=== PATIENT | male | born 1945 | race African-American/Black ===

== ENCOUNTER 2017-08-04 05:39 | Inpatient (IN) | payer OTHER ==
[~2017-08-04] VITALS: Ht 182.9 cm; Wt 127.4 kg
[2017-08-04] MEDS ORDERED: aspirin 81mg tab.chew PO ONE ×2 (05:50→07:15)
[2017-08-04] MEDS ORDERED: normal saline 1000ML IV soln IVB ONE (06:15)
[2017-08-04 06:18] LABS: HEMATOCRIT 48.6 % (42.0-52.0); HEMOGLOBIN 15.6 g/dl (14.0-17.9); MEAN CORPUSCULAR HEMOGLOBIN 28.2 PG (27.0-31.0); MEAN CORPUSCULAR HGB CONC 32.1 % (33.0-36.5); MEAN CORPUSCULAR VOLUME 87.8 FL (78-98); MEAN PLATELET VOLUME 10.2 FL (7.4-10.4); PLATELET COUNT 82 X10'3 (140-440); RED BLOOD COUNT 5.53 X10'6 (4.70-6.10); RED CELL DISTRIBUTION WIDTH 16.2 % (11.5-14.5); WHITE BLOOD COUNT 2.8 X10'3 (4.5-11.0)
[2017-08-04 06:29] LABS: PARTIAL THROMBOPLASTIN TIME 41 SECONDS (22-32); PROTHROMBIN TIME 20.5 SECONDS (9.0-12.0)
[2017-08-04 06:39] LABS: ALANINE AMINOTRANSFERASE 30 U/L (12-78); ALBUMIN 2.9 G/DL (3.4-5.0); ALBUMIN/GLOBULIN RATIO 0.6 (1.1-1.5); ALKALINE PHOSPHATASE 72 IU/L (46-116); ANION GAP 9 (8-16); ASPARTATE AMINO TRANSFERASE 27 U/L (10-37); BILIRUBIN,TOTAL 0.6 MG/DL (0.1-1.0); BLOOD UREA NITROGEN 21 MG/DL (7-18); BUN/CREATININE RATIO 9.1 (5.4-32.0); CALCIUM 8.7 MG/DL (8.5-10.1); CHLORIDE 104 MMOL/L (99-107); CREATININE 2.31 MG/DL (0.60-1.10); GLUCOSE 135 MG/DL (70-104); POTASSIUM 4.4 MMOL/L (3.5-5.1); SODIUM 140 MMOL/L (135-145); TOTAL CARBON DIOXIDE 27.3 MMOL/L (24-32); TOTAL PROTEIN 7.7 G/DL (6.4-8.2); eGFR 34 ML/MIN
[2017-08-04 06:49] LABS: ANISOCYTOSIS 1+; HYPOCHROMASIA 1+; MICROCYTOSIS 1+; PLATELET ESTIMATE DECREASED; TOTAL CELLS COUNTED 100
[2017-08-04 08:16] LABS: MAGNESIUM 1.9 MG/DL (1.5-2.4); PHOSPHORUS 2.6 MG/DL (2.3-4.5)
[2017-08-04 09:10] LABS: CLARITY,URINE Clear (Clear); COLOR,URINE Yellow (Yellow); GLUCOSE, URINE Negative (Neg); KETONES,URINE Negative (Neg); LEUKOCYTE ESTERASE ,URINE Negative (Neg); NITRITES, URINE Negative (Neg); OCCULT BLOOD,URINE Negative (Neg); PROTEIN,URINE 100 mg/dl (Neg)
[2017-08-04 09:16] LABS: UA COLLECTION TYPE CLN CATCH MIDSTREAM
[2017-08-04 09:36] LABS: COARSE GRANULAR CAST 0-3 /LPF (NEGATIVE); MUCUS STRANDS MANY /LPF (Neg); SQUAMOUS EPITHELIAL CELL,UR MANY /LPF (FEW)
[2017-08-04 09:41] LABS: BACTERIA,URINE NONE SEEN /HPF (Neg); RBC,URINE 0-2 /HPF (0-2); TRANSITIONAL EPI CELLS,URINE FEW /HPF; WBC,URINE 0-4 /HPF (0-4)
[2017-08-04] MEDS ORDERED: oseltamivir phos 75mg capsule PO ONE (10:25)
[2017-08-04] MEDS ORDERED: etomidate 2mg/ml inj. ONE (12:00)
[2017-08-04] MEDS ORDERED: mag hydrox/Alum hydrox/simeth 30ml oral suspension PO PRN (12:05)
[2017-08-04] MEDS ORDERED: potassium Cl 20 mEq SR tablet PO PRN ×2 (12:05)
[2017-08-04] MEDS ORDERED: acetaminophen 325mg tablet PO PRN (12:05)
[2017-08-04] MEDS ORDERED: ondansetron/PF 4mg/2ml inj IV PRN (12:05)
[2017-08-04] MEDS ORDERED: magnesium 2GM in 50ml NS 50 ML IV PRN (12:05)
[2017-08-04] MEDS ORDERED: magnesium 4gm in 100ml NS 100 ML IV PRN (12:05)
[2017-08-04] MEDS ORDERED: potassium Cl 40MEQ/NS 500ml 500 ML IV PRN ×2 (12:05)
[2017-08-04] MEDS ORDERED: magnesium hydroxide 30ml (MOM) UD suspension PO PRN (12:05)
[2017-08-04] MEDS ORDERED: magnesium Cl slow-release 64mg tablet PO PRN (12:05)
[2017-08-04] MEDS: normal saline 1000ml 1,000 ML IV SCH (12:19)
[2017-08-04] MEDS ORDERED: LISI-600 PO (15:17)
[2017-08-04] MEDS ORDERED: WARF3TAB7 PO (15:17)
[2017-08-04] MEDS ORDERED: GABA-532 PO (15:17)
[2017-08-04] MEDS ORDERED: CARV-50 PO (15:17)
[2017-08-04] MEDS ORDERED: SPIR25TA3 PO (15:17)
[2017-08-04] MEDS ORDERED: HYDR-4070 PO (15:17)
[2017-08-04] MEDS ORDERED: OMEG-107 PO (15:17)
[2017-08-04] MEDS ORDERED: WARF1TAB PO (15:23)
[2017-08-04] MEDS ORDERED: INSU100V9 SQ (17:05)
[2017-08-04] MEDS ORDERED: dextrose ORAL solution 15 GM/59 ML bottle PO PRN ×2 (18:10)
[2017-08-04] MEDS ORDERED: MESSAGE TO PHARMACY PO ONE (18:10)
[2017-08-04] MEDS ORDERED: glucagon, human recombinant 1mg kit SUBCUT PRN (18:10)
[2017-08-04] MEDS ORDERED: dextrose 50%-water 50ml dispensing syringe IV PRN ×2 (18:10)
[2017-08-04 18:30] LABS: HEMOGLOBIN A1C 7.4 % (4.5-6.2)
[2017-08-04 18:32] LABS: INR 1.9 INR; PROTHROMBIN TIME 18.9 SECONDS (9.0-12.0)
[2017-08-04] MEDS: heparin, porcine 5000 units/ml vial SQ SCH ×2 (20:00→20:44)
[2017-08-04] MEDS: omega-3 acid ethyl esters 1GM capsule PO SCH (20:41)
[2017-08-04] MEDS: gabapentin 300mg capsule PO SCH (20:41)
[2017-08-04] MEDS: oseltamivir 30mg capsule PO SCH (20:43)
[2017-08-04] MEDS ORDERED: warfarin 1mg tablet PO SCH (21:00)
[2017-08-04] MEDS ORDERED: warfarin 3mg tablet PO SCH (21:00)
[2017-08-04] MEDS: Insulin Detemir pen SQ SCH (21:30)
[2017-08-04 21:45] VITALS: BP 148/98
[2017-08-05] VITALS (20 sets, daily range): BP systolic 72–202; BP diastolic 59–138
[2017-08-05] MEDS: normal saline 1000ml 1,000 ML IV SCH (03:56)
[2017-08-05] MEDS ORDERED: guaiFENesin/DM 10ml UD oral syrup PO PRN (04:40)
[2017-08-05] MEDS ORDERED: guaiFENesin 200 MG/10 ML oral syrup UD cup PO PRN (05:00)
[2017-08-05] MEDS ORDERED: furosemide 40mg/4ml inj ONE (06:13)
[2017-08-05 06:21] LABS: ABG BASE EXCESS -7.5 mmol/L (-2.0-3.0); ABG HCO3 23.1 mmol/L (22.0-26.0); ABG OXYGEN SATURATION 82.7 % (95-98); ABG PCO2 (T) 66.6 mmHg (35.0-48.0); ABG PH (T) 7.158 (7.350-7.450); ABG PO2 (T) 58.9 mmHg (83-108); ALLEN'S TEST Positive; FCOHb 0.3 % (0.5-1.5); FMetHb 0.3 % (0.3-1.12); FO2Hb 82.2 % (94-100); RESPIRATORY RATE (OBSERVED) 20 b/min; TOTAL HEMOGLOBIN 19.3 G/dl (14.0-18.0)
[2017-08-05 06:22] LABS: BASOPHILS % (AUTO) 0.1 % (0-1); EOSINOPHILS % (AUTO) 0.4 % (0-6); HEMATOCRIT 56.7 % (42.0-52.0); HEMOGLOBIN 17.9 g/dl (14.0-17.9); LYMPHOCYTES # (AUTO) 2.1 X10'3 (1.1-4.8); LYMPHOCYTES % (AUTO) 30.7 % (21-51); MEAN CORPUSCULAR HEMOGLOBIN 28.2 PG (27.0-31.0); MEAN CORPUSCULAR HGB CONC 31.5 % (33.0-36.5); MEAN CORPUSCULAR VOLUME 89.6 FL (78-98); MEAN PLATELET VOLUME 10.2 FL (7.4-10.4); MONOCYTES # (AUTO) 0.5 X10'3 (0-0.9); MONOCYTES % (AUTO) 7.8 % (2-12); NEUTROPHILS # (AUTO) 4.2 X10'3 (1.8-7.7); PLATELET COUNT 87 X10'3 (140-440); RED BLOOD COUNT 6.33 X10'6 (4.70-6.10); RED CELL DISTRIBUTION WIDTH 16.4 % (11.5-14.5); WHITE BLOOD COUNT 6.9 X10'3 (4.5-11.0)
[2017-08-05 06:36] LABS: ALANINE AMINOTRANSFERASE 35 U/L (12-78); ALBUMIN/GLOBULIN RATIO 0.5 (1.1-1.5); ALKALINE PHOSPHATASE 89 IU/L (46-116); ANION GAP 12 (8-16); ASPARTATE AMINO TRANSFERASE 48 U/L (10-37); BILIRUBIN,TOTAL 0.8 MG/DL (0.1-1.0); BLOOD UREA NITROGEN 22 MG/DL (7-18); CALCIUM 8.3 MG/DL (8.5-10.1); CHLORIDE 103 MMOL/L (99-107); CREATININE 2.21 MG/DL (0.60-1.10); GLUCOSE 184 MG/DL (70-104); POTASSIUM 4.3 MMOL/L (3.5-5.1); SODIUM 140 MMOL/L (135-145); TOTAL CARBON DIOXIDE 25.4 MMOL/L (24-32); TOTAL PROTEIN 8.6 G/DL (6.4-8.2); eGFR 36 ML/MIN
[2017-08-05 07:53] LABS: CRYPTOSPORIDIUM AG NEGATIVE (Neg); GIARDIA LAMBLIA AG NEGATIVE (Neg)
[2017-08-05 07:55] LABS: C DIFF ANTIGEN NEGATIVE (NEGATIVE); C DIFF SPECIMEN=DIARRHEA? ACCEPTABLE; C DIFFICILE TOXINS A&B NEGATIVE (Neg)
[2017-08-05] MEDS: omega-3 acid ethyl esters 1GM capsule PO SCH ×2 (08:00→20:00)
[2017-08-05] MEDS ORDERED: K and/or MAG REPLACEMENT MC SCH (08:00)
[2017-08-05] MEDS: oseltamivir 30mg capsule PO SCH ×2 (08:00→22:14)
[2017-08-05] MEDS: heparin, porcine 5000 units/ml vial SQ SCH ×2 (08:00→20:00)
[2017-08-05] MEDS: gabapentin 300mg capsule PO SCH ×2 (08:00→22:14)
[2017-08-05 08:03] LABS: CHOL/HDL RATIO 6.7 (0.00-4.99); CHOLESTEROL 168 MG/DL (0-200); HDL CHOLESTEROL 25 MG/DL (35-60); LDL CHOLESTEROL 107 MG/DL (50-100); MAGNESIUM 1.7 MG/DL (1.5-2.4); TRIGLYCERIDES 204 MG/DL (20-135); TROPONIN I 0.08 NG/ML (0.0-0.05)
[2017-08-05 08:19] LABS: INR 1.9 INR; PROTHROMBIN TIME 19.2 SECONDS (9.0-12.0)
[2017-08-05] MEDS: insulin Lispro (HumaLOG) vial - multi-dose SQ SCH (09:19)
[2017-08-05] MEDS ORDERED: MIDAZolam 5mg/ml 2ml vial ONE (09:29)
[2017-08-05] MEDS ORDERED: midazolam 2 mg/2 ml injection IV ONE (10:15)
[2017-08-05] MEDS ORDERED: fentaNYL/PF 50MCG/1 ML 2ML syringe IV PRN (10:15)
[2017-08-05] MEDS ORDERED: acetaminophen 325mg tablet PO PRN ×4 (10:45)
[2017-08-05] MEDS: K, MAG and/or Phos replacement - Verify level? MC SCH (10:45)
[2017-08-05] MEDS ORDERED: ondansetron/PF 4mg/2ml inj IV PRN (10:45)
[2017-08-05] MEDS ORDERED: morphine sulfate 8 MG/ML SYRINGE IV PRN ×4 (10:45)
[2017-08-05] MEDS ORDERED: albuterol 2.5 MG/3 ML nebule NEB PRN (10:45)
[2017-08-05] MEDS ORDERED: potassium Cl 20 mEq SR tablet PO PRN ×2 (10:45)
[2017-08-05] MEDS: pantoprazole 40 MG vial IV SCH (10:45)
[2017-08-05] MEDS ORDERED: magnesium hydroxide 30ml (MOM) UD suspension PO PRN ×2 (10:45)
[2017-08-05] MEDS ORDERED: metoclopramide 5 mg/ml inj IV PRN (10:45)
[2017-08-05 10:56] LABS: ABG BASE EXCESS -6.2 mmol/L (-2.0-3.0); ABG HCO3 19.2 mmol/L (22.0-26.0); ABG OXYGEN SATURATION 94.1 % (95-98); ABG PH (T) 7.296 (7.350-7.450); ABG PO2 (T) 82.8 mmHg (83-108); FCOHb 0.3 % (0.5-1.5); FLOW 45 L/min; FMetHb 0.4 % (0.3-1.12); FO2Hb 93.4 % (94-100); MINUTE VOLUME 16 L/min; PATIENT TEMPERATURE 38.5; PEEP 5 cm H2O; RESPIRATORY RATE 14 b/min; TIDAL VOLUME 500 mL; TOTAL HEMOGLOBIN 19.4 G/dl (14.0-18.0)
[2017-08-05 11:00] LABS: OXYGEN SATURATION (MIXED VEN) 62.6 % (60-80); PO2 MIXED VENOUS (TEMP COR) 41.3 mmHg (35-46)
[2017-08-05] MEDS: levoFLOXACIN-Levaquin 750MG/D5 150 ML IV SCH (11:57)
[2017-08-05] MEDS: FENTANYL-0.9 % NACL/PF 100 ML IV PRN (11:58)
[2017-08-05] MEDS: midazolam 100mg in NS 100ml 100 ML IV PRN ×2 (11:58→22:15)
[2017-08-05] MEDS: CefTRIAXone 2gm/NS 100ml IVPB 100 ML IV SCH (13:38)
[2017-08-05] MEDS: lactobacillus rhamnosus 10,000 MMU CELLS/CAPSULE PO SCH (17:25)
[2017-08-05 18:36] LABS: MAGNESIUM 1.5 MG/DL (1.5-2.4)
[2017-08-05 18:47] LABS: D-DIMER 1.69 MG/L FEU (0-0.50); INR 2.7 INR; PARTIAL THROMBOPLASTIN TIME 44 SECONDS (22-32); PROTHROMBIN TIME 26.9 SECONDS (9.0-12.0)
[2017-08-05 18:59] LABS: PLATELET COUNT 75 X10'3 (140-440)
[2017-08-05] MEDS ORDERED: warfarin 4mg tablet PO ONE (21:00)
[2017-08-05] MEDS: Insulin Detemir pen SQ SCH (21:00)
[2017-08-06] VITALS (24 sets, daily range): BP systolic 85–116; BP diastolic 57–78
[2017-08-06 02:40] LABS: ABG BASE EXCESS -5.7 mmol/L (-2.0-3.0); ABG HCO3 17.7 mmol/L (22.0-26.0); ABG PH (T) 7.367 (7.350-7.450); ABG PO2 (T) 87.7 mmHg (83-108); FCOHb 0.2 % (0.5-1.5); FMetHb 0.2 % (0.3-1.12); FO2Hb 95.6 % (94-100); MINUTE VOLUME 14 L/min; PATIENT TEMPERATURE 38.3; PEEP 10 cm H2O; RESPIRATORY RATE 24 b/min; RESPIRATORY RATE (OBSERVED) 28 b/min; TIDAL VOLUME 475 mL; TOTAL HEMOGLOBIN 17.1 G/dl (14.0-18.0)
[2017-08-06 03:11] LABS: BASOPHILS % (AUTO) 0 % (0-1); EOSINOPHILS % (AUTO) 0 % (0-6); HEMATOCRIT 51.1 % (42.0-52.0); HEMOGLOBIN 16.3 g/dl (14.0-17.9); LYMPHOCYTES # (AUTO) 0.8 X10'3 (1.1-4.8); LYMPHOCYTES % (AUTO) 6.8 % (21-51); MEAN CORPUSCULAR HEMOGLOBIN 28.1 PG (27.0-31.0); MEAN CORPUSCULAR HGB CONC 31.9 % (33.0-36.5); MEAN CORPUSCULAR VOLUME 87.9 FL (78-98); MEAN PLATELET VOLUME 11.4 FL (7.4-10.4); MONOCYTES # (AUTO) 0.4 X10'3 (0-0.9); MONOCYTES % (AUTO) 3.4 % (2-12); NEUTROPHILS # (AUTO) 10.5 X10'3 (1.8-7.7); NEUTROPHILS % (AUTO) 89.8 % (42-75); PLATELET COUNT 76 X10'3 (140-440); RED BLOOD COUNT 5.82 X10'6 (4.70-6.10); RED CELL DISTRIBUTION WIDTH 16.1 % (11.5-14.5); WHITE BLOOD COUNT 11.7 X10'3 (4.5-11.0)
[2017-08-06 03:19] LABS: INR 2.8 INR; PROTHROMBIN TIME 28.2 SECONDS (9.0-12.0)
[2017-08-06 03:25] LABS: ALBUMIN 2.2 G/DL (3.4-5.0); ANION GAP 14 (8-16); BLOOD UREA NITROGEN 44 MG/DL (7-18); CALCIUM 8.1 MG/DL (8.5-10.1); CHLORIDE 105 MMOL/L (99-107); CREATININE 3.99 MG/DL (0.60-1.10); GLUCOSE 186 MG/DL (70-104); MAGNESIUM 1.6 MG/DL (1.5-2.4); POTASSIUM 5.1 MMOL/L (3.5-5.1); SODIUM 139 MMOL/L (135-145); TOTAL CARBON DIOXIDE 20.4 MMOL/L (24-32); eGFR 18 ML/MIN
[2017-08-06 05:18] LABS: TOTAL CELLS COUNTED 100
[2017-08-06 05:19] LABS: ANISOCYTOSIS 1+; PLATELET ESTIMATE DECREASED
[2017-08-06] MEDS: K, MAG and/or Phos replacement - Verify level? MC SCH (08:00)
[2017-08-06] MEDS: methylnaltrexone br 12mg/0.6ml inj***SubQ only SQ SCH (08:22)
[2017-08-06] MEDS: CefTRIAXone 2gm/NS 100ml IVPB 100 ML IV SCH (08:22)
[2017-08-06] MEDS: levoFLOXACIN-Levaquin 750MG/D5 150 ML IV SCH (08:22)
[2017-08-06] MEDS: lactobacillus rhamnosus 10,000 MMU CELLS/CAPSULE PO SCH ×2 (08:23→17:14)
[2017-08-06] MEDS: omega-3 acid ethyl esters 1GM capsule PO SCH ×2 (08:23→20:00)
[2017-08-06] MEDS: pantoprazole 40 MG vial IV SCH (08:23)
[2017-08-06] MEDS: oseltamivir 30mg capsule PO SCH (08:23)
[2017-08-06] MEDS: heparin, porcine 5000 units/ml vial SQ SCH ×2 (08:23→20:40)
[2017-08-06] MEDS: gabapentin 300mg capsule PO SCH ×2 (08:23→20:36)
[2017-08-06] MEDS: insulin Lispro (HumaLOG) vial - multi-dose SQ SCH ×2 (08:37→20:39)
[2017-08-06] MEDS ORDERED: OSELTAMIVIR 30MG/5ML (6MG/ML) **ORAL** SYRINGE PO SCH (10:01)
[2017-08-06] MEDS: sodium chloride 0.45% 1,000 ML IV SCH ×3 (10:32→19:32)
[2017-08-06 11:03] LABS: CREATININE,URINE RANDOM 227.7 MG/DL; TOTAL PROTEIN,URINE RANDOM 204.3 MG/DL
[2017-08-06] MEDS ORDERED: oseltamivir 30mg capsule PO SCH (14:12)
[2017-08-06] MEDS: mineral oil/petrolatum ophthal oint EACHEYE SCH ×2 (14:25→19:32)
[2017-08-06] MEDS: FENTANYL-0.9 % NACL/PF 100 ML IV PRN (15:53)
[2017-08-06] MEDS: midazolam 100mg in NS 100ml 100 ML IV PRN (19:32)
[2017-08-06] MEDS: OSELTAMIVIR 30MG/5ML (6MG/ML) **ORAL** SYRINGE PO SCH (20:35)
[2017-08-06] MEDS: Insulin Detemir pen SQ SCH (20:38)
[2017-08-06] MEDS ORDERED: warfarin 3mg tablet PO ONE (21:00)
[2017-08-06] MEDS ORDERED: warfarin 1mg tablet PO ONE (21:00)
[2017-08-07] VITALS (23 sets, daily range): BP systolic 88–131; BP diastolic 57–84
[2017-08-07] MEDS: mineral oil/petrolatum ophthal oint EACHEYE SCH ×4 (02:11→20:43)
[2017-08-07] MEDS: insulin Lispro (HumaLOG) vial - multi-dose SQ SCH (02:12)
[2017-08-07 02:35] LABS: ABG HCO3 19.5 mmol/L (22.0-26.0); ABG OXYGEN SATURATION 91.3 % (95-98); ABG PCO2 (T) 31.9 mmHg (35.0-48.0); ABG PH (T) 7.405 (7.350-7.450); ABG PO2 (T) 60.8 mmHg (83-108); ALLEN'S TEST Positive; FCOHb 0.3 % (0.5-1.5); FMetHb 0.2 % (0.3-1.12); FO2Hb 90.8 % (94-100); MINUTE VOLUME 12 L/min; PEEP 5 cm H2O; RESPIRATORY RATE 24 b/min; RESPIRATORY RATE (OBSERVED) 24 b/min; TIDAL VOLUME 475 mL; TOTAL HEMOGLOBIN 15.4 G/dl (14.0-18.0)
[2017-08-07 02:47] LABS: PROTHROMBIN TIME 42.8 SECONDS (9.0-12.0)
[2017-08-07 02:48] LABS: BASOPHILS % (AUTO) 0.2 % (0-1); EOSINOPHILS % (AUTO) 0 % (0-6); HEMATOCRIT 45.7 % (42.0-52.0); HEMOGLOBIN 14.7 g/dl (14.0-17.9); LYMPHOCYTES # (AUTO) 1.2 X10'3 (1.1-4.8); LYMPHOCYTES % (AUTO) 11.2 % (21-51); MEAN CORPUSCULAR HEMOGLOBIN 28.2 PG (27.0-31.0); MEAN CORPUSCULAR HGB CONC 32.1 % (33.0-36.5); MEAN CORPUSCULAR VOLUME 87.9 FL (78-98); MEAN PLATELET VOLUME 10.1 FL (7.4-10.4); MONOCYTES # (AUTO) 0.3 X10'3 (0-0.9); MONOCYTES % (AUTO) 3.2 % (2-12); NEUTROPHILS # (AUTO) 8.8 X10'3 (1.8-7.7); NEUTROPHILS % (AUTO) 85.4 % (42-75); PLATELET COUNT 66 X10'3 (140-440); RED CELL DISTRIBUTION WIDTH 15.9 % (11.5-14.5); WHITE BLOOD COUNT 10.3 X10'3 (4.5-11.0)
[2017-08-07 03:08] LABS: INR 4.4 INR
[2017-08-07 03:22] LABS: ANION GAP 13 (8-16); BLOOD UREA NITROGEN 64 MG/DL (7-18); BUN/CREATININE RATIO 11.9 (5.4-32.0); CALCIUM 8.4 MG/DL (8.5-10.1); CHLORIDE 106 MMOL/L (99-107); CREATININE 5.38 MG/DL (0.60-1.10); GLUCOSE 131 MG/DL (70-104); MAGNESIUM 1.8 MG/DL (1.5-2.4); POTASSIUM 4.1 MMOL/L (3.5-5.1); SODIUM 139 MMOL/L (135-145); TOTAL CARBON DIOXIDE 19.9 MMOL/L (24-32); eGFR 13 ML/MIN
[2017-08-07] MEDS: sodium chloride 0.45% 1,000 ML IV SCH ×2 (03:34→17:55)
[2017-08-07] MEDS: omega-3 acid ethyl esters 1GM capsule PO SCH ×2 (06:32→20:43)
[2017-08-07] MEDS: lactobacillus rhamnosus 10,000 MMU CELLS/CAPSULE PO SCH ×2 (07:18→17:03)
[2017-08-07] MEDS: pantoprazole 40 MG vial IV SCH (07:19)
[2017-08-07] MEDS: gabapentin 300mg capsule PO SCH ×2 (07:19→20:42)
[2017-08-07] MEDS: CefTRIAXone 2gm/NS 100ml IVPB 100 ML IV SCH (07:19)
[2017-08-07] MEDS: heparin, porcine 5000 units/ml vial SQ SCH (08:00)
[2017-08-07] MEDS: K, MAG and/or Phos replacement - Verify level? MC SCH (08:00)
[2017-08-07] MEDS ORDERED: phytonadione inj. 1 MG in normal saline 100ml IV soln 99.9 ML IV ONE (08:10)
[2017-08-07] MEDS ORDERED: normal saline 1000ml 1,000 ML IV ONE ×2 (08:10→10:25)
[2017-08-07] MEDS: OSELTAMIVIR 30MG/5ML (6MG/ML) **ORAL** SYRINGE PO SCH ×2 (10:23→20:43)
[2017-08-07] MEDS ORDERED: polyethylene glycol 3350 17gm powd pack PO PRN (10:45)
[2017-08-07] MEDS: insulin regular, human vial - multi-dose SQ SCH ×2 (16:03→20:53)
[2017-08-07] MEDS: midazolam 100mg in NS 100ml 100 ML IV PRN (17:51)
[2017-08-07] MEDS: Insulin Detemir pen SQ SCH (20:45)
[2017-08-08] VITALS (23 sets, daily range): BP systolic 120–168; BP diastolic 73–134
[2017-08-08] MEDS: mineral oil/petrolatum ophthal oint EACHEYE SCH ×2 (02:56→08:00)
[2017-08-08] MEDS: sodium chloride 0.45% 1,000 ML IV SCH ×2 (02:56→09:55)
[2017-08-08] MEDS: insulin regular, human vial - multi-dose SQ SCH ×3 (03:35→15:40)
[2017-08-08 03:47] LABS: BASOPHILS % (AUTO) 0.2 % (0-1); EOSINOPHILS # (AUTO) 0.1 X10'3 (0-0.9); EOSINOPHILS % (AUTO) 1.5 % (0-6); HEMATOCRIT 42.7 % (42.0-52.0); HEMOGLOBIN 13.7 g/dl (14.0-17.9); MEAN CORPUSCULAR HEMOGLOBIN 28.2 PG (27.0-31.0); MEAN CORPUSCULAR HGB CONC 32.2 % (33.0-36.5); MEAN CORPUSCULAR VOLUME 87.8 FL (78-98); MEAN PLATELET VOLUME 11.5 FL (7.4-10.4); MONOCYTES # (AUTO) 0.4 X10'3 (0-0.9); MONOCYTES % (AUTO) 6.4 % (2-12); NEUTROPHILS # (AUTO) 5.3 X10'3 (1.8-7.7); NEUTROPHILS % (AUTO) 76.9 % (42-75); PLATELET COUNT 62 X10'3 (140-440); RED BLOOD COUNT 4.86 X10'6 (4.70-6.10); RED CELL DISTRIBUTION WIDTH 16.5 % (11.5-14.5); WHITE BLOOD COUNT 6.9 X10'3 (4.5-11.0)
[2017-08-08 03:55] LABS: ALBUMIN 1.8 G/DL (3.4-5.0); ANION GAP 12 (8-16); BLOOD UREA NITROGEN 69 MG/DL (7-18); BUN/CREATININE RATIO 15.1 (5.4-32.0); CALCIUM 8.2 MG/DL (8.5-10.1); CHLORIDE 108 MMOL/L (99-107); CREATININE 4.58 MG/DL (0.60-1.10); GLUCOSE 176 MG/DL (70-104); POTASSIUM 3.9 MMOL/L (3.5-5.1); SODIUM 141 MMOL/L (135-145); TOTAL CARBON DIOXIDE 21.4 MMOL/L (24-32); eGFR 15 ML/MIN
[2017-08-08 03:55] LABS: ABG BASE EXCESS -5.8 mmol/L (-2.0-3.0); ABG HCO3 18.3 mmol/L (22.0-26.0); ABG OXYGEN SATURATION 95.5 % (95-98); ABG PCO2 (T) 31.8 mmHg (35.0-48.0); ABG PH (T) 7.376 (7.350-7.450); ABG PO2 (T) 78.8 mmHg (83-108); FCOHb 0.8 % (0.5-1.5); FMetHb 0.1 % (0.3-1.12); FO2Hb 94.6 % (94-100); MINUTE VOLUME 12 L/min; PATIENT TEMPERATURE 36.8; PEEP 8 cm H2O; RESPIRATORY RATE 24 b/min; RESPIRATORY RATE (OBSERVED) 24 b/min; TIDAL VOLUME 475 mL; TOTAL HEMOGLOBIN 14.5 G/dl (14.0-18.0)
[2017-08-08 03:56] LABS: INR 1.6 INR; PROTHROMBIN TIME 16.1 SECONDS (9.0-12.0)
[2017-08-08] MEDS: methylnaltrexone br 12mg/0.6ml inj***SubQ only SQ SCH (07:40)
[2017-08-08] MEDS: omega-3 acid ethyl esters 1GM capsule PO SCH ×2 (07:40→22:50)
[2017-08-08] MEDS: pantoprazole 40 MG vial IV SCH (07:54)
[2017-08-08] MEDS: lactobacillus rhamnosus 10,000 MMU CELLS/CAPSULE PO SCH ×2 (07:54→17:30)
[2017-08-08] MEDS: gabapentin 300mg capsule PO SCH ×2 (07:54→22:50)
[2017-08-08] MEDS ORDERED: levoFLOXACIN-Levaquin 750MG/D5 150 ML IV SCH (08:00)
[2017-08-08] MEDS: K, MAG and/or Phos replacement - Verify level? MC SCH (08:00)
[2017-08-08 08:51] LABS: CLARITY,URINE Cloudy (Clear); COLOR,URINE Yellow (Yellow); GLUCOSE, URINE Negative (Neg); KETONES,URINE Negative (Neg); LEUKOCYTE ESTERASE ,URINE Trace (Neg); NITRITES, URINE Negative (Neg); OCCULT BLOOD,URINE Large (Neg); PROTEIN,URINE 30 mg/dl (Neg); UA COLLECTION TYPE FOLEY CATH; UROBILINOGEN,URINE 0.2 E.U/dL (0.2-1.0)
[2017-08-08 09:07] LABS: HYALINE CASTS 0-3 /LPF (NEGATIVE)
[2017-08-08 09:08] LABS: RBC,URINE TNTC /HPF (0-2); TRANSITIONAL EPI CELLS,URINE FEW /HPF
[2017-08-08 09:12] LABS: URIC ACID CRYSTALS FEW /HPF (NEGATIVE)
[2017-08-08 09:14] LABS: AMORPHOUS URATES 1+
[2017-08-08] MEDS: OSELTAMIVIR 30MG/5ML (6MG/ML) **ORAL** SYRINGE PO SCH ×2 (09:14→22:50)
[2017-08-08] MEDS: CefTRIAXone 2gm/NS 100ml IVPB 100 ML IV SCH (09:14)
[2017-08-08 09:15] LABS: WBC,URINE 0-4 /HPF (0-4)
[2017-08-08 09:16] LABS: BACTERIA,URINE 1+ /HPF (Neg); FINE GRANULAR CAST 0-3 /LPF (NEGATIVE); SQUAMOUS EPITHELIAL CELL,UR FEW /LPF (FEW)
[2017-08-08] MEDS ORDERED: carVEDilol 12.5mg tablet PO SCH ×2 (14:00→20:00)
[2017-08-08] MEDS: carVEDilol 12.5mg tablet PO SCH ×2 (14:17→22:49)
[2017-08-08] MEDS ORDERED: racepinephrine 11.25mg/0.5ml nebule NEB PRN (16:00)
[2017-08-08] MEDS ORDERED: ipratropium/albuterol 3ml nebule NEB PRN (16:00)
[2017-08-08] MEDS ORDERED: hyDRALAzine 10mg tablet PO SCH (16:00)
[2017-08-08] MEDS ORDERED: hydrALAZINE 25 MG tablet PO ONE (16:45)
[2017-08-08] MEDS ORDERED: hyDRALAzine 10mg tablet PO ONE (16:50)
[2017-08-08 19:01] LABS: ABG BASE EXCESS -6.4 mmol/L (-2.0-3.0); ABG HCO3 17.8 mmol/L (22.0-26.0); ABG OXYGEN SATURATION 95.7 % (95-98); ABG PCO2 (T) 31.1 mmHg (35.0-48.0); ABG PH (T) 7.372 (7.350-7.450); ABG PO2 (T) 78.6 mmHg (83-108); FCOHb 0.9 % (0.5-1.5); FLOW 4 L/min; FMetHb 0.2 % (0.3-1.12); FO2Hb 94.6 % (94-100); PATIENT TEMPERATURE 36.1; RESPIRATORY RATE (OBSERVED) 18 b/min; TOTAL HEMOGLOBIN 15.4 G/dl (14.0-18.0)
[2017-08-08] MEDS: ipratropium/albuterol 3ml nebule NEB SCH (20:57)
[2017-08-08] MEDS ORDERED: warfarin 5mg tablet PO ONE (21:00)
[2017-08-08] MEDS: Insulin Detemir pen SQ SCH (22:52)
[2017-08-09] VITALS (21 sets, daily range): BP systolic 135–174; BP diastolic 84–140
[2017-08-09] MEDS: hydrALAZINE 25 MG tablet PO SCH ×3 (00:14→16:15)
[2017-08-09] MEDS: ipratropium/albuterol 3ml nebule NEB SCH ×4 (03:11→21:56)
[2017-08-09 03:49] LABS: BASOPHILS % (AUTO) 0.2 % (0-1); EOSINOPHILS # (AUTO) 0.1 X10'3 (0-0.9); EOSINOPHILS % (AUTO) 1.1 % (0-6); HEMATOCRIT 45.3 % (42.0-52.0); HEMOGLOBIN 14.5 g/dl (14.0-17.9); LYMPHOCYTES % (AUTO) 17.8 % (21-51); MEAN CORPUSCULAR HEMOGLOBIN 28.1 PG (27.0-31.0); MEAN CORPUSCULAR VOLUME 87.9 FL (78-98); MONOCYTES # (AUTO) 0.6 X10'3 (0-0.9); MONOCYTES % (AUTO) 10.5 % (2-12); NEUTROPHILS # (AUTO) 3.9 X10'3 (1.8-7.7); NEUTROPHILS % (AUTO) 70.4 % (42-75); PLATELET COUNT 66 X10'3 (140-440); RED BLOOD COUNT 5.15 X10'6 (4.70-6.10); RED CELL DISTRIBUTION WIDTH 16.3 % (11.5-14.5); WHITE BLOOD COUNT 5.6 X10'3 (4.5-11.0)
[2017-08-09 03:55] LABS: INR 1.4 INR; PROTHROMBIN TIME 14.2 SECONDS (9.0-12.0)
[2017-08-09 04:02] LABS: ANION GAP 10 (8-16); BLOOD UREA NITROGEN 66 MG/DL (7-18); BUN/CREATININE RATIO 17.5 (5.4-32.0); CHLORIDE 112 MMOL/L (99-107); CREATININE 3.77 MG/DL (0.60-1.10); GLUCOSE 148 MG/DL (70-104); POTASSIUM 4.5 MMOL/L (3.5-5.1); SODIUM 142 MMOL/L (135-145); TOTAL CARBON DIOXIDE 19.7 MMOL/L (24-32); eGFR 19 ML/MIN
[2017-08-09 04:09] LABS: GIANT PLATELET FEW; PLATELET ESTIMATE DECREASED
[2017-08-09] MEDS: K, MAG and/or Phos replacement - Verify level? MC SCH (08:00)
[2017-08-09] MEDS: omega-3 acid ethyl esters 1GM capsule PO SCH ×2 (08:00→19:26)
[2017-08-09] MEDS: gabapentin 300mg capsule PO SCH ×2 (08:11→19:26)
[2017-08-09] MEDS: CefTRIAXone 2gm/NS 100ml IVPB 100 ML IV SCH (08:12)
[2017-08-09] MEDS: pantoprazole 40 MG vial IV SCH (08:12)
[2017-08-09] MEDS: carVEDilol 12.5mg tablet PO SCH ×2 (08:12→19:26)
[2017-08-09] MEDS: OSELTAMIVIR 30MG/5ML (6MG/ML) **ORAL** SYRINGE PO SCH ×2 (08:21→19:28)
[2017-08-09] MEDS: lactobacillus rhamnosus 10,000 MMU CELLS/CAPSULE PO SCH ×2 (08:22→17:44)
[2017-08-09] MEDS ORDERED: warfarin 3mg tablet PO ONE (21:00)
[2017-08-09] MEDS: Insulin Detemir pen SQ SCH (21:17)
[2017-08-10] VITALS (22 sets, daily range): BP systolic 144–183; BP diastolic 90–125
[2017-08-10] MEDS: hydrALAZINE 25 MG tablet PO SCH ×4 (00:21→23:51)
[2017-08-10 02:51] LABS: INR 1.6 INR; PROTHROMBIN TIME 16.5 SECONDS (9.0-12.0)
[2017-08-10] MEDS: ipratropium/albuterol 3ml nebule NEB SCH ×4 (03:17→20:47)
[2017-08-10] MEDS: omega-3 acid ethyl esters 1GM capsule PO SCH ×2 (08:00→19:50)
[2017-08-10] MEDS: K, MAG and/or Phos replacement - Verify level? MC SCH (08:00)
[2017-08-10] MEDS: methylnaltrexone br 12mg/0.6ml inj***SubQ only SQ SCH (08:00)
[2017-08-10] MEDS: OSELTAMIVIR 30MG/5ML (6MG/ML) **ORAL** SYRINGE PO SCH (09:00)
[2017-08-10] MEDS: gabapentin 300mg capsule PO SCH ×2 (09:01→19:51)
[2017-08-10] MEDS: lactobacillus rhamnosus 10,000 MMU CELLS/CAPSULE PO SCH ×2 (09:01→16:47)
[2017-08-10] MEDS: carVEDilol 12.5mg tablet PO SCH ×2 (09:02→19:51)
[2017-08-10] MEDS: CefTRIAXone 2gm/NS 100ml IVPB 100 ML IV SCH (09:02)
[2017-08-10] MEDS: pantoprazole 40 MG vial IV SCH (09:02)
[2017-08-10] MEDS: insulin regular, human vial - multi-dose SQ SCH (09:06)
[2017-08-10 11:11] LABS: BASOPHILS % (AUTO) 0.4 % (0-1); EOSINOPHILS # (AUTO) 0.1 X10'3 (0-0.9); EOSINOPHILS % (AUTO) 1.6 % (0-6); HEMATOCRIT 44.2 % (42.0-52.0); HEMOGLOBIN 14.3 g/dl (14.0-17.9); LYMPHOCYTES # (AUTO) 0.9 X10'3 (1.1-4.8); LYMPHOCYTES % (AUTO) 20.5 % (21-51); MEAN CORPUSCULAR HEMOGLOBIN 28.3 PG (27.0-31.0); MEAN CORPUSCULAR HGB CONC 32.4 % (33.0-36.5); MEAN CORPUSCULAR VOLUME 87.1 FL (78-98); MEAN PLATELET VOLUME 11.7 FL (7.4-10.4); MONOCYTES # (AUTO) 0.6 X10'3 (0-0.9); MONOCYTES % (AUTO) 13.6 % (2-12); NEUTROPHILS # (AUTO) 2.8 X10'3 (1.8-7.7); NEUTROPHILS % (AUTO) 63.9 % (42-75); PLATELET COUNT 90 X10'3 (140-440); RED BLOOD COUNT 5.07 X10'6 (4.70-6.10); RED CELL DISTRIBUTION WIDTH 16.3 % (11.5-14.5); WHITE BLOOD COUNT 4.4 X10'3 (4.5-11.0)
[2017-08-10 11:32] LABS: ALANINE AMINOTRANSFERASE 77 U/L (12-78); ALBUMIN 2.1 G/DL (3.4-5.0); ALBUMIN/GLOBULIN RATIO 0.4 (1.1-1.5); ALKALINE PHOSPHATASE 68 IU/L (46-116); ANION GAP 8 (8-16); ASPARTATE AMINO TRANSFERASE 88 U/L (10-37); BILIRUBIN,TOTAL 0.8 MG/DL (0.1-1.0); BLOOD UREA NITROGEN 60 MG/DL (7-18); BUN/CREATININE RATIO 18.8 (5.4-32.0); CALCIUM 8.9 MG/DL (8.5-10.1); CHLORIDE 114 MMOL/L (99-107); GLUCOSE 141 MG/DL (70-104); MAGNESIUM 1.9 MG/DL (1.5-2.4); PHOSPHORUS 2.6 MG/DL (2.3-4.5); POTASSIUM 4.4 MMOL/L (3.5-5.1); SODIUM 146 MMOL/L (135-145); TOTAL CARBON DIOXIDE 24.3 MMOL/L (24-32); TOTAL PROTEIN 7.3 G/DL (6.4-8.2); eGFR 23 ML/MIN
[2017-08-10 12:42] LABS: ANISOCYTOSIS 1+; LARGE PLATELETS MODERATE; PLATELET ESTIMATE DECREASED; TOTAL CELLS COUNTED 100
[2017-08-10 12:43] LABS: ELLIPTOCYTES 1+
[2017-08-10] MEDS: levoFLOXACIN 750MG TABLET PO SCH (13:07)
[2017-08-10] MEDS ORDERED: warfarin 3mg tablet PO ONE (21:00)
[2017-08-10] MEDS ORDERED: warfarin 1mg tablet PO ONE (21:00)
[2017-08-10] MEDS: Insulin Detemir pen SQ SCH ×2 (23:00→23:51)
[2017-08-11] VITALS (20 sets, daily range): BP systolic 132–165; BP diastolic 46–108
[2017-08-11] MEDS: ipratropium/albuterol 3ml nebule NEB SCH ×4 (02:40→20:57)
[2017-08-11 02:56] LABS: BASOPHILS % (AUTO) 0.3 % (0-1); EOSINOPHILS # (AUTO) 0.1 X10'3 (0-0.9); EOSINOPHILS % (AUTO) 2.3 % (0-6); HEMATOCRIT 42.9 % (42.0-52.0); HEMOGLOBIN 13.8 g/dl (14.0-17.9); LYMPHOCYTES # (AUTO) 0.9 X10'3 (1.1-4.8); LYMPHOCYTES % (AUTO) 19.7 % (21-51); MEAN CORPUSCULAR HEMOGLOBIN 28.3 PG (27.0-31.0); MEAN CORPUSCULAR HGB CONC 32.1 % (33.0-36.5); MEAN CORPUSCULAR VOLUME 88.2 FL (78-98); MEAN PLATELET VOLUME 10.7 FL (7.4-10.4); MONOCYTES # (AUTO) 0.7 X10'3 (0-0.9); MONOCYTES % (AUTO) 14.9 % (2-12); NEUTROPHILS % (AUTO) 62.8 % (42-75); PLATELET COUNT 94 X10'3 (140-440); RED BLOOD COUNT 4.86 X10'6 (4.70-6.10); RED CELL DISTRIBUTION WIDTH 16.2 % (11.5-14.5); WHITE BLOOD COUNT 4.8 X10'3 (4.5-11.0)
[2017-08-11 03:07] LABS: INR 2.2 INR; PROTHROMBIN TIME 22.1 SECONDS (9.0-12.0)
[2017-08-11 03:14] LABS: ALANINE AMINOTRANSFERASE 64 U/L (12-78); ALBUMIN 2.1 G/DL (3.4-5.0); ALBUMIN/GLOBULIN RATIO 0.4 (1.1-1.5); ALKALINE PHOSPHATASE 73 IU/L (46-116); ANION GAP 7 (8-16); ASPARTATE AMINO TRANSFERASE 51 U/L (10-37); BILIRUBIN,TOTAL 0.6 MG/DL (0.1-1.0); BLOOD UREA NITROGEN 52 MG/DL (7-18); BUN/CREATININE RATIO 18.2 (5.4-32.0); CALCIUM 8.7 MG/DL (8.5-10.1); CHLORIDE 114 MMOL/L (99-107); CREATININE 2.85 MG/DL (0.60-1.10); GLUCOSE 132 MG/DL (70-104); MAGNESIUM 1.9 MG/DL (1.5-2.4); PHOSPHORUS 2.9 MG/DL (2.3-4.5); POTASSIUM 4.2 MMOL/L (3.5-5.1); SODIUM 147 MMOL/L (135-145); TOTAL CARBON DIOXIDE 25.9 MMOL/L (24-32); eGFR 27 ML/MIN
[2017-08-11] MEDS: hydrALAZINE 25 MG tablet PO SCH ×2 (07:39→17:24)
[2017-08-11] MEDS: carVEDilol 12.5mg tablet PO SCH ×2 (07:39→20:23)
[2017-08-11] MEDS: lactobacillus rhamnosus 10,000 MMU CELLS/CAPSULE PO SCH ×2 (07:39→17:24)
[2017-08-11] MEDS: pantoprazole 40 MG vial IV SCH (07:40)
[2017-08-11] MEDS: gabapentin 300mg capsule PO SCH ×2 (07:40→20:23)
[2017-08-11] MEDS: omega-3 acid ethyl esters 1GM capsule PO SCH ×2 (07:40→20:23)
[2017-08-11] MEDS: K, MAG and/or Phos replacement - Verify level? MC SCH (08:00)
[2017-08-11] MEDS ORDERED: warfarin 3mg tablet PO ONE (21:00)
[2017-08-11] MEDS: Insulin Detemir pen SQ SCH (22:14)
[2017-08-12] MEDS: hydrALAZINE 25 MG tablet PO SCH ×2 (00:44→07:46)
[2017-08-12 03:00] VITALS: BP 138/106
[2017-08-12] MEDS: ipratropium/albuterol 3ml nebule NEB SCH ×2 (03:18→08:47)
[2017-08-12 06:00] VITALS: BP 142/95
[2017-08-12 06:04] LABS: BASOPHILS % (AUTO) 0.3 % (0-1); EOSINOPHILS # (AUTO) 0.2 X10'3 (0-0.9); EOSINOPHILS % (AUTO) 3.7 % (0-6); HEMATOCRIT 42.3 % (42.0-52.0); HEMOGLOBIN 13.5 g/dl (14.0-17.9); LYMPHOCYTES # (AUTO) 1.3 X10'3 (1.1-4.8); LYMPHOCYTES % (AUTO) 27.1 % (21-51); MEAN CORPUSCULAR HGB CONC 31.9 % (33.0-36.5); MEAN CORPUSCULAR VOLUME 87.7 FL (78-98); MEAN PLATELET VOLUME 10.7 FL (7.4-10.4); MONOCYTES # (AUTO) 0.8 X10'3 (0-0.9); MONOCYTES % (AUTO) 17.3 % (2-12); NEUTROPHILS # (AUTO) 2.5 X10'3 (1.8-7.7); NEUTROPHILS % (AUTO) 51.6 % (42-75); PLATELET COUNT 120 X10'3 (140-440); RED BLOOD COUNT 4.83 X10'6 (4.70-6.10); RED CELL DISTRIBUTION WIDTH 16.5 % (11.5-14.5); WHITE BLOOD COUNT 4.8 X10'3 (4.5-11.0)
[2017-08-12 06:22] LABS: INR 2.3 INR; PROTHROMBIN TIME 23.3 SECONDS (9.0-12.0)
[2017-08-12] MEDS: pantoprazole 40 MG vial IV SCH (07:43)
[2017-08-12] MEDS: lactobacillus rhamnosus 10,000 MMU CELLS/CAPSULE PO SCH (07:43)
[2017-08-12] MEDS: omega-3 acid ethyl esters 1GM capsule PO SCH (07:46)
[2017-08-12] MEDS: gabapentin 300mg capsule PO SCH (07:46)
[2017-08-12] MEDS: carVEDilol 12.5mg tablet PO SCH (07:46)
[2017-08-12 07:51] VITALS: BP 143/86
[2017-08-12] MEDS: methylnaltrexone br 12mg/0.6ml inj***SubQ only SQ SCH (08:00)
[2017-08-12] MEDS: K, MAG and/or Phos replacement - Verify level? MC SCH (08:00)
[2017-08-12 08:34] LABS: PLATELET ESTIMATE DECREASED
[2017-08-12 08:35] LABS: LARGE PLATELETS FEW
[2017-08-12] MEDS: insulin Lispro (HumaLOG) vial - multi-dose SQ SCH ×2 (08:58→13:06)
[2017-08-12 11:00] VITALS: BP 137/87
[2017-08-12 11:12] LABS: ALANINE AMINOTRANSFERASE 57 U/L (12-78); ALBUMIN 2.2 G/DL (3.4-5.0); ALBUMIN/GLOBULIN RATIO 0.4 (1.1-1.5); ALKALINE PHOSPHATASE 73 IU/L (46-116); ANION GAP 6 (8-16); ASPARTATE AMINO TRANSFERASE 42 U/L (10-37); BILIRUBIN,TOTAL 0.6 MG/DL (0.1-1.0); BLOOD UREA NITROGEN 44 MG/DL (7-18); BUN/CREATININE RATIO 18.8 (5.4-32.0); CALCIUM 8.7 MG/DL (8.5-10.1); CHLORIDE 108 MMOL/L (99-107); CREATININE 2.34 MG/DL (0.60-1.10); GLUCOSE 147 MG/DL (70-104); MAGNESIUM 1.7 MG/DL (1.5-2.4); PHOSPHORUS 2.8 MG/DL (2.3-4.5); SODIUM 140 MMOL/L (135-145); TOTAL CARBON DIOXIDE 26.1 MMOL/L (24-32); TOTAL PROTEIN 7.3 G/DL (6.4-8.2); eGFR 34 ML/MIN
[2017-08-12] MEDS: levoFLOXACIN 750MG TABLET PO SCH (11:30)
[2017-08-12] MEDS ORDERED: warfarin 3mg tablet PO ONE (21:00)
== END 2017-08-12 14:46 | disposition home or self-care (01) | DRG 871 ==
LOC: ER 05:39 → ED HOLD 12:01 → MED 3N 21:35 → CICU 2S 08-05 06:27 → PCU 3S 08-05 06:50 → CICU 2S 08-05 09:51 → PCU 3S 08-11 16:50
PROVIDERS: ADMIT Internal Medicine; ATTEND Internal Medicine Critical Care Medicine
PROC: 5A09357 Assistance with Respiratory Ventilation, Less than 24 Consecutive Hours, Continuous Positive Airway Pressure (ICD-10-PCS; principal; 2017-08-05)
PROC: 5A1945Z Respiratory Ventilation, 24-96 Consecutive Hours (ICD-10-PCS; 2017-08-05)
PROC: 0BH17EZ Insertion of Endotracheal Airway into Trachea, Via Natural or Artificial Opening (ICD-10-PCS; 2017-08-05)
PROC: 02HV33Z Insertion of Infusion Device into Superior Vena Cava, Percutaneous Approach (ICD-10-PCS; 2017-08-05)
DX: A41.9 Sepsis, unspecified organism (principal); R65.21 Severe sepsis with septic shock; J96.01 Acute respiratory failure with hypoxia; E11.22 Type 2 diabetes mellitus with diabetic chronic kidney disease; E11.42 Type 2 diabetes mellitus with diabetic polyneuropathy; D69.6 Thrombocytopenia, unspecified; N18.4 Chronic kidney disease, stage 4 (severe); N17.9 Acute kidney failure, unspecified; G45.9 Transient cerebral ischemic attack, unspecified; I48.91 Unspecified atrial fibrillation; R35.0 Frequency of micturition; R79.89 Other specified abnormal findings of blood chemistry; W18.39XA Other fall on same level, initial encounter; J10.1 Influenza due to other identified influenza virus with other respiratory manifestations; E66.9 Obesity, unspecified; Z60.2 Problems related to living alone; I12.9 Hypertensive chronic kidney disease with stage 1 through stage 4 chronic kidney disease, or unspecified chronic kidney disease; Z95.0 Presence of cardiac pacemaker; Z79.01 Long term (current) use of anticoagulants; Z79.899 Other long term (current) drug therapy; Z79.4 Long term (current) use of insulin; Z86.73 Personal history of transient ischemic attack (TIA), and cerebral infarction without residual deficits; Y93.89 Activity, other specified; Y92.89 Other specified places as the place of occurrence of the external cause; Y99.8 Other external cause status; Z68.38 Body mass index [BMI] 38.0-38.9, adult
CPT/HCPCS: 36415; 36600; 70450; 71010; 74000; 80048; 80053; 80061; 81001; 82570; 82803; 82810; 82948; 83036; 83605; 83735; 83880; 84100; 84145; 84156; 84300; 84439; 84443; 84484; 85018; 85025; 85379; 85384; 85610; 85730; 87040; 87045; 87046; 87070; 87088; 87324; 87328; 87329; 87336; 87449; 87502; 87503; 89055; 92616; 93005; 93306; 93880; 94002; 94003; 94640; 94660; 94668; 94760; 96360; 97110; 97162; 97530; 99285; A4315; A4344; A6212; A6213; A6257; A6449; C1751; C1758; C9113; G9035; J0696; J1644; J1815; J1940; J1956; J2212; J2250; J2270; J3430; J3490; J7030

== ENCOUNTER 2018-03-13 11:30 | Inpatient (IN) | payer OTHER ==
[~2018-03-13] VITALS: Ht 185.4 cm; Wt 129.0 kg
[~2018-03-13 11:30] MED LIST: CARV-50 PO; GABA-532 PO; HYDR-4070 PO; INSU100V9 SQ; LISI-600 PO; OMEG-107 PO; SPIR25TA5 PO; WARF1TAB PO; WARF3TAB56 PO
[2018-03-13] MEDS ORDERED: acetaminophen 325mg tablet PO STA (11:55)
[2018-03-13 12:28] LABS: INR 2.8 INR; PARTIAL THROMBOPLASTIN TIME 43 SECONDS (22-32); PROTHROMBIN TIME 27.5 SECONDS (9.0-12.0)
[2018-03-13] MEDS ORDERED: bacitracin ointment unit dose packet TP STA (12:33)
[2018-03-13] MEDS ORDERED: ipratropium/albuterol 3ml nebule NEB ONE (12:35)
[2018-03-13 12:42] LABS: ALANINE AMINOTRANSFERASE 19 U/L (12-78); ALBUMIN 2.4 G/DL (3.4-5.0); ALBUMIN/GLOBULIN RATIO 0.5 (1.1-1.5); ALKALINE PHOSPHATASE 81 IU/L (46-116); ANION GAP 6 (8-16); ASPARTATE AMINO TRANSFERASE 13 U/L (10-37); BILIRUBIN,TOTAL 1.1 MG/DL (0.1-1.0); BLOOD UREA NITROGEN 18 MG/DL (7-18); CALCIUM 8.7 MG/DL (8.5-10.1); CHLORIDE 104 MMOL/L (99-107); CREATININE 2.25 MG/DL (0.60-1.10); GLUCOSE 165 MG/DL (70-104); MAGNESIUM 1.7 MG/DL (1.5-2.4); POTASSIUM 3.8 MMOL/L (3.5-5.1); SODIUM 137 MMOL/L (135-145); TOTAL CARBON DIOXIDE 27.3 MMOL/L (24-32); TOTAL PROTEIN 7.3 G/DL (6.4-8.2); eGFR 35 ML/MIN
[2018-03-13] MEDS ORDERED: normal saline 1000ML IV soln IVB ONE ×2 (12:45→12:55)
[2018-03-13] MEDS ORDERED: OMEG-82 PO (12:51)
[2018-03-13] MEDS ORDERED: SIMV10TA6 PO (12:51)
[2018-03-13] MEDS ORDERED: furosemide 10 MG/1 ML 10ml inj IV ONE (12:55)
[2018-03-13] MEDS ORDERED: HYDROcodone/acetaminophen 5mg/325mg tablet PO ONE (14:05)
[2018-03-13] MEDS ORDERED: CefTRIAXone 2gm/D5W 50ml 50 ML IV ONE (14:05)
[2018-03-13] MEDS ORDERED: diphenhydrAMINE 25mg capsule PO PRN (14:10)
[2018-03-13] MEDS ORDERED: dextrose ORAL solution 15 GM/59 ML bottle PO PRN ×2 (14:10)
[2018-03-13] MEDS ORDERED: magnesium hydroxide 30ml (MOM) UD suspension PO PRN (14:10)
[2018-03-13] MEDS ORDERED: ondansetron/PF 4mg/2ml inj IV PRN (14:10)
[2018-03-13] MEDS ORDERED: acetaminophen 650mg rectal suppository RC PRN (14:10)
[2018-03-13] MEDS ORDERED: mag hydrox/Alum hydrox/simeth 30ml oral suspension PO PRN (14:10)
[2018-03-13] MEDS ORDERED: HYDROmorphone inj. 0.5 MG/0.5 ML DISP.SYRIN IV PRN ×2 (14:10)
[2018-03-13] MEDS ORDERED: dextrose 50%-water 50ml dispensing syringe IV PRN ×2 (14:10)
[2018-03-13] MEDS ORDERED: bisacodyl 10mg suppository rectal RC PRN (14:10)
[2018-03-13] MEDS ORDERED: glucagon, human recombinant 1mg kit SUBCUT PRN (14:10)
[2018-03-13] MEDS ORDERED: metoclopramide 5 mg/ml inj IV PRN (14:10)
[2018-03-13] MEDS ORDERED: HYDROcodone/acetaminophen 5mg/325mg tablet PO PRN (14:10)
[2018-03-13] MEDS ORDERED: diphenhydrAMINE 50 mg/ml inj IV PRN (14:10)
[2018-03-13] MEDS ORDERED: MESSAGE TO PHARMACY PO ONE (14:10)
[2018-03-13] MEDS ORDERED: morphine 4 MG/ML inj SYRINge IV PRN (14:10)
[2018-03-13] MEDS ORDERED: acetaminophen 325mg tablet PO PRN (14:10)
[2018-03-13 14:28] LABS: CLARITY,URINE Clear (Clear); COLOR,URINE Yellow (Yellow); GLUCOSE, URINE Negative (Neg); KETONES,URINE Negative (Neg); LEUKOCYTE ESTERASE ,URINE Negative (Neg); NITRITES, URINE Negative (Neg); OCCULT BLOOD,URINE Negative (Neg); PH,URINE 6.5 (4.8-8.0); PROTEIN,URINE Negative (Neg)
[2018-03-13 14:31] LABS: UA COLLECTION TYPE VOIDED
[2018-03-13 15:17] LABS: HEMOGLOBIN A1C 8.2 % (4.5-6.2)
[2018-03-13 15:22] LABS: LIPASE 79 U/L (73-393); PHOSPHORUS 2.1 MG/DL (2.3-4.5)
[2018-03-13] MEDS ORDERED: HYDR-4070 PO (15:35)
[2018-03-13] MEDS: ceFAZolin 1GM/D5W- ADD-VANTAGE 50 ML IV SCH ×2 (16:06→23:49)
[2018-03-13 19:00] VITALS: BP 159/90
[2018-03-13] MEDS: furosemide 10 MG/1 ML 10ml inj IV SCH (19:27)
[2018-03-13] MEDS: carVEDilol 12.5mg tablet PO SCH (19:28)
[2018-03-13] MEDS: gabapentin 300mg capsule PO SCH (19:28)
[2018-03-13] MEDS: docusate sod 100mg capsule PO SCH (19:28)
[2018-03-13] MEDS ORDERED: temazepam 15mg capsule PO PRN (21:00)
[2018-03-13 22:00] VITALS: BP 147/42
[2018-03-13] MEDS: insulin glargine (Lantus) pen - multi-dose SQ SCH (22:28)
[2018-03-14] MEDS: HYDROcodone/acetaminophen 10/325mg tab PO PRN ×5 (05:26→23:45)
[2018-03-14 06:00] VITALS: BP 121/90
[2018-03-14 06:00] LABS: BASOPHILS % (AUTO) 0 % (0-1); EOSINOPHILS # (AUTO) 0.1 X10'3 (0-0.9); EOSINOPHILS % (AUTO) 0.6 % (0-6); HEMATOCRIT 42.7 % (42.0-52.0); HEMOGLOBIN 13.7 g/dl (14.0-17.9); LYMPHOCYTES # (AUTO) 1.2 X10'3 (1.1-4.8); LYMPHOCYTES % (AUTO) 8.7 % (21-51); MEAN CORPUSCULAR HEMOGLOBIN 28.8 PG (27.0-31.0); MEAN CORPUSCULAR HGB CONC 32.1 % (33.0-36.5); MEAN CORPUSCULAR VOLUME 89.8 FL (78-98); MEAN PLATELET VOLUME 10.4 FL (7.4-10.4); MONOCYTES # (AUTO) 0.8 X10'3 (0-0.9); MONOCYTES % (AUTO) 5.9 % (2-12); NEUTROPHILS # (AUTO) 11.6 X10'3 (1.8-7.7); NEUTROPHILS % (AUTO) 84.8 % (42-75); PLATELET COUNT 103 X10'3 (140-440); RED BLOOD COUNT 4.75 X10'6 (4.70-6.10); RED CELL DISTRIBUTION WIDTH 16.8 % (11.5-14.5); WHITE BLOOD COUNT 13.7 X10'3 (4.5-11.0)
[2018-03-14 06:11] LABS: ALANINE AMINOTRANSFERASE 21 U/L (12-78); ALBUMIN 2.5 G/DL (3.4-5.0); ALBUMIN/GLOBULIN RATIO 0.5 (1.1-1.5); ALKALINE PHOSPHATASE 73 IU/L (46-116); ANION GAP 6 (8-16); ASPARTATE AMINO TRANSFERASE 18 U/L (10-37); BILIRUBIN,TOTAL 0.9 MG/DL (0.1-1.0); BLOOD UREA NITROGEN 23 MG/DL (7-18); BUN/CREATININE RATIO 9.3 (5.4-32.0); CALCIUM 9.1 MG/DL (8.5-10.1); CHLORIDE 104 MMOL/L (99-107); CREATININE 2.47 MG/DL (0.60-1.10); GLUCOSE 111 MG/DL (70-104); POTASSIUM 3.3 MMOL/L (3.5-5.1); SODIUM 141 MMOL/L (135-145); TOTAL CARBON DIOXIDE 30.7 MMOL/L (24-32); TOTAL PROTEIN 7.8 G/DL (6.4-8.2); eGFR 31 ML/MIN
[2018-03-14 06:14] LABS: INR 2.5 INR; PROTHROMBIN TIME 24.6 SECONDS (9.0-12.0)
[2018-03-14 07:50] LABS: LARGE PLATELETS FEW; PLATELET ESTIMATE DECREASED
[2018-03-14] MEDS ORDERED: potassium Cl 40MEQ/NS 500ml 500 ML IV PRN ×2 (08:25)
[2018-03-14] MEDS ORDERED: potassium Cl 20 mEq SR tablet PO PRN (08:25)
[2018-03-14] MEDS: morphine 4 MG/ML inj SYRINge IV PRN ×2 (08:46→20:01)
[2018-03-14] MEDS: gabapentin 300mg capsule PO SCH ×2 (08:49→20:02)
[2018-03-14] MEDS: carVEDilol 12.5mg tablet PO SCH ×2 (08:49→20:02)
[2018-03-14] MEDS: docusate sod 100mg capsule PO SCH ×2 (08:49→20:01)
[2018-03-14] MEDS: ceFAZolin 1GM/D5W- ADD-VANTAGE 50 ML IV SCH ×3 (08:49→23:44)
[2018-03-14] MEDS: lisinopril 20mg tablet PO SCH (08:49)
[2018-03-14] MEDS: spironolactone 25 MG tablet PO SCH (08:49)
[2018-03-14] MEDS: potassium Cl 20 mEq SR tablet PO PRN ×2 (08:50→20:56)
[2018-03-14] MEDS: insulin Lispro (HumaLOG) vial - multi-dose SQ SCH ×3 (09:02→18:44)
[2018-03-14] MEDS: pantoprazole 40mg Tablet.DR PO SCH (09:08)
[2018-03-14] MEDS: furosemide 10 MG/1 ML 10ml inj IV SCH ×3 (09:08→23:44)
[2018-03-14 10:00] VITALS: BP 144/99
[2018-03-14] MEDS ORDERED: potassium phosphate inj 15 MMOL in normal saline 250ml IV soln 245 ML IV ONE (11:45)
[2018-03-14] MEDS: potassium Cl 20 mEq SR tablet PO SCH ×2 (12:12→18:20)
[2018-03-14] MEDS: aspirin 81mg tablet.DR PO SCH (13:06)
[2018-03-14 18:00] VITALS: BP 143/68
[2018-03-14] MEDS ORDERED: magnesium 4gm in 100ml NS 100 ML IV PRN (19:20)
[2018-03-14] MEDS: lactobacillus rhamnosus 10,000 MMU CELLS/CAPSULE PO SCH (20:03)
[2018-03-14 20:34] LABS: MAGNESIUM 1.9 MG/DL (1.5-2.4); POTASSIUM 3.5 MMOL/L (3.5-5.1)
[2018-03-14] MEDS: magnesium Cl slow-release 64mg tablet PO PRN (20:56)
[2018-03-14] MEDS: insulin glargine (Lantus) pen - multi-dose SQ SCH (20:59)
[2018-03-14] MEDS ORDERED: warfarin 1mg tablet PO ONE (21:00)
[2018-03-14] MEDS ORDERED: warfarin 1mg tablet PO SCH (21:00)
[2018-03-14] MEDS ORDERED: atorvastatin 10mg tablet PO SCH (21:00)
[2018-03-14] MEDS ORDERED: warfarin 3mg tablet PO SCH (21:00)
[2018-03-14] MEDS ORDERED: warfarin 3mg tablet PO ONE (21:00)
[2018-03-14 22:00] VITALS: BP 130/88
[2018-03-15] MEDS: potassium Cl 20 mEq SR tablet PO PRN (01:00)
[2018-03-15] MEDS: HYDROcodone/acetaminophen 10/325mg tab PO PRN ×3 (05:12→13:41)
[2018-03-15 06:00] VITALS: BP 133/81
[2018-03-15 07:09] LABS: BASOPHILS % (AUTO) 0.1 % (0-1); EOSINOPHILS # (AUTO) 0.2 X10'3 (0-0.9); EOSINOPHILS % (AUTO) 2.6 % (0-6); HEMATOCRIT 45.2 % (42.0-52.0); HEMOGLOBIN 14.4 g/dl (14.0-17.9); LYMPHOCYTES # (AUTO) 1.4 X10'3 (1.1-4.8); LYMPHOCYTES % (AUTO) 15.9 % (21-51); MEAN CORPUSCULAR HEMOGLOBIN 28.6 PG (27.0-31.0); MEAN CORPUSCULAR HGB CONC 31.9 % (33.0-36.5); MEAN CORPUSCULAR VOLUME 89.8 FL (78-98); MEAN PLATELET VOLUME 9.9 FL (7.4-10.4); MONOCYTES # (AUTO) 0.7 X10'3 (0-0.9); MONOCYTES % (AUTO) 7.4 % (2-12); NEUTROPHILS # (AUTO) 6.5 X10'3 (1.8-7.7); PLATELET COUNT 112 X10'3 (140-440); RED BLOOD COUNT 5.03 X10'6 (4.70-6.10); RED CELL DISTRIBUTION WIDTH 17.4 % (11.5-14.5); WHITE BLOOD COUNT 8.8 X10'3 (4.5-11.0)
[2018-03-15 07:19] LABS: PROTHROMBIN TIME 20.2 SECONDS (9.0-12.0)
[2018-03-15] MEDS: pantoprazole 40mg Tablet.DR PO SCH (07:20)
[2018-03-15] MEDS: ceFAZolin 1GM/D5W- ADD-VANTAGE 50 ML IV SCH (07:20)
[2018-03-15] MEDS: furosemide 10 MG/1 ML 10ml inj IV SCH (07:21)
[2018-03-15] MEDS: lisinopril 20mg tablet PO SCH (07:21)
[2018-03-15] MEDS: gabapentin 300mg capsule PO SCH (07:21)
[2018-03-15] MEDS: docusate sod 100mg capsule PO SCH (07:21)
[2018-03-15] MEDS: potassium Cl 20 mEq SR tablet PO SCH (07:21)
[2018-03-15] MEDS: aspirin 81mg tablet.DR PO SCH (07:21)
[2018-03-15] MEDS: carVEDilol 12.5mg tablet PO SCH (07:21)
[2018-03-15 07:24] LABS: ALANINE AMINOTRANSFERASE 23 U/L (12-78); ALBUMIN 2.6 G/DL (3.4-5.0); ALBUMIN/GLOBULIN RATIO 0.5 (1.1-1.5); ALKALINE PHOSPHATASE 80 IU/L (46-116); ANION GAP 6 (8-16); ASPARTATE AMINO TRANSFERASE 17 U/L (10-37); BILIRUBIN,TOTAL 0.5 MG/DL (0.1-1.0); BLOOD UREA NITROGEN 29 MG/DL (7-18); BUN/CREATININE RATIO 11.1 (5.4-32.0); CALCIUM 8.8 MG/DL (8.5-10.1); CHLORIDE 103 MMOL/L (99-107); CREATININE 2.62 MG/DL (0.60-1.10); GLUCOSE 120 MG/DL (70-104); MAGNESIUM 1.8 MG/DL (1.5-2.4); PHOSPHORUS 3.5 MG/DL (2.3-4.5); POTASSIUM 4.1 MMOL/L (3.5-5.1); SODIUM 140 MMOL/L (135-145); TOTAL CARBON DIOXIDE 30.9 MMOL/L (24-32); TOTAL PROTEIN 8.3 G/DL (6.4-8.2); eGFR 29 ML/MIN
[2018-03-15] MEDS: lactobacillus rhamnosus 10,000 MMU CELLS/CAPSULE PO SCH (08:40)
[2018-03-15] MEDS: spironolactone 25 MG tablet PO SCH (08:40)
[2018-03-15] MEDS: magnesium Cl slow-release 64mg tablet PO PRN (08:40)
[2018-03-15] MEDS: insulin Lispro (HumaLOG) vial - multi-dose SQ SCH ×2 (08:43→13:46)
[2018-03-15 10:00] VITALS: BP 116/70
[2018-03-15] MEDS ORDERED: amiodarone 200mg tablet PO SCH (10:50)
[2018-03-15] MEDS ORDERED: DOCU-28 PO (12:02)
[2018-03-15] MEDS ORDERED: FURO-150 PO (12:02)
[2018-03-15] MEDS ORDERED: HYDR-565 PO (12:02)
[2018-03-15] MEDS ORDERED: CEPH500C5 PO (12:02)
[2018-03-15] MEDS ORDERED: AMIO200T40 PO (12:02)
[2018-03-15] MEDS ORDERED: POTA20TA19 PO (12:02)
[2018-03-15] MEDS ORDERED: warfarin 1mg tablet PO ONE (21:00)
[2018-03-15] MEDS ORDERED: warfarin 3mg tablet PO ONE (21:00)
== END 2018-03-15 14:25 | disposition home or self-care (01) | DRG 291 ==
LOC: ER 11:30 → ED HOLD 14:06 → EDBEDREQ 17:13 → ORTHO 4S 18:30
PROVIDERS: ADMIT Family Medicine; ATTEND Internal Medicine
PROC: 4B02XSZ Measurement of Cardiac Pacemaker, External Approach (ICD-10-PCS; principal; 2018-03-13)
PROC: 5A09357 Assistance with Respiratory Ventilation, Less than 24 Consecutive Hours, Continuous Positive Airway Pressure (ICD-10-PCS; 2018-03-13)
PROC: 5A09357 Assistance with Respiratory Ventilation, Less than 24 Consecutive Hours, Continuous Positive Airway Pressure (ICD-10-PCS; 2018-03-14)
DX: I13.0 Hypertensive heart and chronic kidney disease with heart failure and stage 1 through stage 4 chronic kidney disease, or unspecified chronic kidney disease (principal); I50.43 Acute on chronic combined systolic (congestive) and diastolic (congestive) heart failure; N17.9 Acute kidney failure, unspecified; L03.115 Cellulitis of right lower limb; I69.351 Hemiplegia and hemiparesis following cerebral infarction affecting right dominant side; I47.2 Ventricular tachycardia; N13.30 Unspecified hydronephrosis; D69.6 Thrombocytopenia, unspecified; D72.825 Bandemia; E11.22 Type 2 diabetes mellitus with diabetic chronic kidney disease; I25.10 Atherosclerotic heart disease of native coronary artery without angina pectoris; I48.91 Unspecified atrial fibrillation; G47.30 Sleep apnea, unspecified; E11.621 Type 2 diabetes mellitus with foot ulcer; L97.519 Non-pressure chronic ulcer of other part of right foot with unspecified severity; N18.3 Chronic kidney disease, stage 3 (moderate); E66.01 Morbid (severe) obesity due to excess calories; E83.39 Other disorders of phosphorus metabolism; E87.6 Hypokalemia; I49.5 Sick sinus syndrome; Z60.2 Problems related to living alone; Z95.0 Presence of cardiac pacemaker; Z79.01 Long term (current) use of anticoagulants; Z79.899 Other long term (current) drug therapy; Z79.4 Long term (current) use of insulin; Z68.37 Body mass index [BMI] 37.0-37.9, adult
CPT/HCPCS: 36415; 70450; 71045; 74176; 76775; 80053; 81003; 82948; 83036; 83605; 83690; 83735; 83880; 84100; 84132; 84484; 85025; 85610; 85730; 87040; 87070; 93005; 93306; 93880; 94640; 94760; 97116; 97162; 97530; A6212; A6213; A6222; A6251; A6258; A6446; A6449; J0690; J0696; J1815; J1940; J2270; J7030

== ENCOUNTER 2018-09-19 08:05 | Inpatient (IN) | payer OTHER | END 2018-09-25 13:59 | disposition home or self-care (01) | LOC: ER 08:05 → ORTHO 4S 09-20 14:05 → ED HOLD 13:10 | DX: I11.0 Hypertensive heart disease with heart failure (principal); N17.0 Acute kidney failure with tubular necrosis; I20.9 Angina pectoris, unspecified; I50.9 Heart failure, unspecified; I48.2 Chronic atrial fibrillation; Z79.01 Long term (current) use of anticoagulants; E11.9 Type 2 diabetes mellitus without complications; I50.32 Chronic diastolic (congestive) heart failure ==

== ENCOUNTER 2020-02-11 10:14 | Emergency (ER) | payer OTHER ==
[~2020-02-11] VITALS: Ht 182.9 cm; Wt 135.9 kg
[~2020-02-11 10:14] MED LIST changes: +ALBU2.5V7 NEB; +AMIO200T61 PO; +AMOX1TAB15 PO; +CALC500T11 PO; +FURO-149 PO; -OMEG-107 PO; +OMEG1CAP PO; +POTA-82 PO; +SIMV10TA98 PO; -WARF1TAB PO; +WARF1TAB2 PO
[2020-02-11 10:43] VITALS: BP 114/77
[2020-02-11] MEDS ORDERED: HYDROcodone/acetaminophen 5mg/325mg tablet PO ONE (12:15)
[2020-02-11] MEDS ORDERED: HYDR-3965 PO (13:04)
== END 2020-02-11 13:13 | disposition home or self-care (01) ==
LOC: ER 10:16
DX: M25.532 Pain in left wrist (principal); I48.91 Unspecified atrial fibrillation; E11.9 Type 2 diabetes mellitus without complications; Z86.73 Personal history of transient ischemic attack (TIA), and cerebral infarction without residual deficits; Z95.0 Presence of cardiac pacemaker; Z60.2 Problems related to living alone; Z79.4 Long term (current) use of insulin; Z79.899 Other long term (current) drug therapy
CPT/HCPCS: 29125; 73110; 99283

== ENCOUNTER 2020-09-03 12:46 | Emergency (ER) | payer OTHER ==
[~2020-09-03] VITALS: Ht 182.9 cm; Wt 139.1 kg
[2020-09-03 13:35] LABS: BASOPHILS % (AUTO) 0.5 % (0-1); EOSINOPHILS # (AUTO) 0.1 X10'3 (0-0.9); EOSINOPHILS % (AUTO) 2.5 % (0-6); HEMATOCRIT 47.3 % (42.0-52.0); HEMOGLOBIN 14.9 g/dl (14.0-17.9); LYMPHOCYTES # (AUTO) 1.4 X10'3 (1.1-4.8); LYMPHOCYTES % (AUTO) 34.4 % (21-51); MEAN CORPUSCULAR HEMOGLOBIN 27.8 PG (27.0-31.0); MEAN CORPUSCULAR HGB CONC 31.5 g/dL (33.0-36.5); MEAN CORPUSCULAR VOLUME 88.3 FL (78-98); MEAN PLATELET VOLUME 9.2 FL (7.4-10.4); MONOCYTES # (AUTO) 0.3 X10'3 (0-0.9); MONOCYTES % (AUTO) 6.6 % (2-12); NEUTROPHILS # (AUTO) 2.3 X10'3 (1.8-7.7); PLATELET COUNT 144 X10'3 (140-440); RED BLOOD COUNT 5.36 X10'6 (4.70-6.10); RED CELL DISTRIBUTION WIDTH 16.7 % (11.5-14.5); WHITE BLOOD COUNT 4.2 X10'3 (4.5-11.0)
[2020-09-03 14:01] LABS: ALANINE AMINOTRANSFERASE 24 U/L (12-78); ALBUMIN 2.8 G/DL (3.4-5.0); ALBUMIN/GLOBULIN RATIO 0.5 (1.1-1.5); ALKALINE PHOSPHATASE 95 IU/L (46-116); ANION GAP 8 (8-16); ASPARTATE AMINO TRANSFERASE 18 U/L (10-37); BILIRUBIN,TOTAL 0.4 MG/DL (0.1-1.0); BLOOD UREA NITROGEN 20 MG/DL (7-18); BUN/CREATININE RATIO 8.8 (5.4-32.0); CALCIUM 8.8 MG/DL (8.5-10.1); CHLORIDE 104 MMOL/L (99-107); CREATININE 2.27 MG/DL (0.60-1.10); GLUCOSE 183 MG/DL (70-104); POTASSIUM 4.2 MMOL/L (3.5-5.1); SODIUM 139 MMOL/L (135-145); TOTAL CARBON DIOXIDE 27.5 MMOL/L (24-32); TOTAL PROTEIN 8.5 G/DL (6.4-8.2); eGFR 34 ML/MIN
[2020-09-03 14:53] VITALS: BP 181/126
[2020-09-03] MEDS ORDERED: FURO-149 PO (14:53)
[2020-09-03] MEDS ORDERED: furosemide 20MG tablet PO ONE (15:15)
== END 2020-09-03 15:28 | disposition home or self-care (01) ==
LOC: ER 12:46
DX: I50.9 Heart failure, unspecified (principal); R07.89 Other chest pain; R60.0 Localized edema; I48.91 Unspecified atrial fibrillation; E11.9 Type 2 diabetes mellitus without complications; Z86.73 Personal history of transient ischemic attack (TIA), and cerebral infarction without residual deficits; Z95.0 Presence of cardiac pacemaker; Z60.2 Problems related to living alone; Z79.2 Long term (current) use of antibiotics; Z79.4 Long term (current) use of insulin; Z79.899 Other long term (current) drug therapy
CPT/HCPCS: 36415; 71045; 80053; 83880; 84484; 85025; 93005; 99285

== ENCOUNTER 2020-11-24 13:31 | Emergency (ER) | payer OTHER ==
[~2020-11-24] VITALS: Ht 182.9 cm; Wt 136.8 kg
[~2020-11-24 13:31] MED LIST changes: -LISI-600 PO; +LISI20TA28 PO
[2020-11-24] MEDS ORDERED: polyethylene glycol 3350 17gm powd pack PO STA (15:08)
[2020-11-24] MEDS ORDERED: furosemide 20MG tablet PO ONE (15:15)
--- NOTE | 2020-11-24 15:57 | NUR ---
VASCULAR US DONE
[2020-11-24 16:10] VITALS: BP 149/81
== END 2020-11-24 16:41 | disposition home or self-care (01) ==
LOC: ER 13:31
DX: I13.0 Hypertensive heart and chronic kidney disease with heart failure and stage 1 through stage 4 chronic kidney disease, or unspecified chronic kidney disease (principal); E11.22 Type 2 diabetes mellitus with diabetic chronic kidney disease; N18.9 Chronic kidney disease, unspecified; M79.662 Pain in left lower leg; I48.91 Unspecified atrial fibrillation; Z86.73 Personal history of transient ischemic attack (TIA), and cerebral infarction without residual deficits; Z86.2 Personal history of diseases of the blood and blood-forming organs and certain disorders involving the immune mechanism; Z95.0 Presence of cardiac pacemaker; Z60.2 Problems related to living alone; Z79.2 Long term (current) use of antibiotics; Z79.4 Long term (current) use of insulin; Z79.899 Other long term (current) drug therapy
CPT/HCPCS: 71045; 93971; 99284